=== PATIENT | female | born 1960 | race American Indian/Alaskan Native ===

== ENCOUNTER 2018-11-05 12:34 | Outpatient (CLI) | payer OTHER ==
--- NOTE | 2018-11-05 13:07 | XRay Report ---
XRAY LEFT HIP THREE VIEWS: 11/05/18 12:34:00 CLINICAL: Pain. COMPARISON: 03/29/17 FINDINGS: The femoral head is grossly abnormal with progressive heterogeneous increased density since the last exam. New subchondral fractures and flattening of the femoral head. Similar chronic changes in the right hip which are unchanged compared to the previous exam. The pelvic bones are intact. Lower lumbar degenerative disc disease at L4-5 and L5-S1. Pelvic phleboliths. The bowel gas pattern is normal with abundant stool in the colon. IMPRESSION: 1. Stage IV left hip avascular necrosis with new subchondral fractures and flattening of the femoral head since the last exam. 2. 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
== END 2018-11-05 12:35 | disposition home or self-care (01) ==
LOC: SPVIMAG 12:34
PROVIDERS: ATTEND Internal Medicine
DX: S72.092A Other fracture of head and neck of left femur, initial encounter for closed fracture (principal); M87.852 Other osteonecrosis, left femur; X58.XXXA Exposure to other specified factors, initial encounter; Y93.89 Activity, other specified; Y92.89 Other specified places as the place of occurrence of the external cause; Y99.8 Other external cause status